=== PATIENT | female | born 1990 | race Caucasian/White ===

== ENCOUNTER 2018-03-20 00:13 | Emergency (ER) | payer BC ==
[~2018-03-20] VITALS: Ht 175.3 cm; Wt 63.5 kg
--- NOTE | 2018-03-20 00:25 | NUR ---
TO ER BED 9 FROM HOME COMPLAINING OF LT FLANK PAIN FOR THE PAST "5 HOURS." AA/O X4. PAIN NON RADIATING, SHARP PAIN, 8/10 PAIN. +NAUSEA/ - VOMITTING. SKIN PINK, WARM, DRY. AMBULATED TO BED WITH STABLE GAIT. PEDAL PULSES PRESENT. MOVES ALL EXTREMITIES WELL. NAD. VSS. STABLE CONDITION. WILL CONTINUE TO MONITOR.
[2018-03-20] MEDS ORDERED: CEFTRIAXONE 1 G VIAL ONE (00:58)
[2018-03-20] MEDS ORDERED: ONDANSETRON HCL/PF 4 MG/2 ML VIAL ONE ×2 (00:58→02:21)
[2018-03-20] MEDS ORDERED: HYDROMORPHONE 1 MG/1 ML DISP.SYRIN ONE (00:59)
[2018-03-20] MEDS ORDERED: IV NS 0.9% 1,000 ML BAG IV ONE (01:00)
[2018-03-20] MEDS ORDERED: HYDROMORPHONE INJ 2 MG/ML DISP.SYRIN IV ONE (01:00)
[2018-03-20] MEDS ORDERED: ONDANSETRON HCL/PF 4 MG/2 ML VIAL IVP ONE (01:00)
[2018-03-20] MEDS ORDERED: CEFTRIAXONE 1GM BAG (ER ONLY) 50 ML IV ONE (01:00)
[2018-03-20 01:15] LABS: BASOPHILS # (AUTO) 0.1 /CMM (0.0-0.2); BASOPHILS % (AUTO) 0.6 % (0.0-2.0); EOSINOPHILS % (AUTO) 2.5 % (0.0-6.0); HEMATOCRIT 45 % (33-45); LYMPHOCYTES # (AUTO) 1.6 /CMM (0.8-4.8); LYMPHOCYTES % (AUTO) 18.4 % (20.0-44.0); MEAN CORPUSCULAR HGB CONC 33 g/dl (31.0-36.0); MEAN CORPUSCULAR VOLUME 96 fL (82-100); MONOCYTES # (AUTO) 0.6 /CMM (0.1-1.30); MONOCYTES % (AUTO) 7.4 % (2.0-12.0); NEUTROPHILS # (AUTO) 6.3 /CMM (1.8-8.9); NEUTROPHILS % (AUTO) 71.1 % (43.0-81.0); PLATELET COUNT (AUTO) 253 /CMM (150-450); RDW COEFFICIENT OF VARIATION 11.6 (11.5-15.0); RED BLOOD CELL COUNT(AUTO) 4.68 MIL/uL (4.0-5.2); WHITE BLOOD COUNT (AUTO) 8.8 K/uL (4.3-11.0)
--- NOTE | 2018-03-20 01:17 | NUR ---
Patient is resting comfortably in bed with eyes closed. Easily aroused. VSS. NAD. FAMILY AT BEDSIDE
[2018-03-20 01:29] LABS: APPEARANCE,URINE CLEAR (CLEAR); BILIRUBIN,URINE NEGATIVE (NEGATIVE); BLOOD, URINE 3+ Ery/uL (NEGATIVE); COLOR,URINE OTHER (YELLOW); KETONES,URINE NEGATIVE (NEGATIVE); LEUKOCYTE ESTERASE ,URINE 1+ (NEGATIVE); NITRITE, URINE NEGATIVE (NEGATIVE); PH,URINE 6.5 (5.0-8.0); PROTEIN,URINE TRACE mg/dl (NEGATIVE); UGLUCOSE NEGATIVE (NEGATIVE); UROBILINOGEN,URINE 0.2 EU/dL (0.2)
[2018-03-20 01:42] LABS: CALCIUM, SERUM 9.7 mg/dL (8.5-10.1); CREATININE 0.9 mg/dL (0.6-1.3); POTASSIUM 3.8 mmol/L (3.5-5.1)
[2018-03-20 01:48] LABS: ALBUMIN 4.3 g/dL (3.4-5.0); BILIRUBIN,DIRECT 0.1 mg/dL (0.0-0.2); BILIRUBIN,TOTAL 0.4 mg/dL (0.2-1.0); TOTAL PROTEIN, SERUM 7.9 g/dL (6.4-8.2)
[2018-03-20 01:57] LABS: BACTERIA,URINE Moderate /HPF (None Seen); RBC,URINE 0-2 /HPF (0-2); SQUAMOUS EPITHELIAL CELL,UR Few /HPF (None Seen)
[2018-03-20] MEDS ORDERED: ONDANSETRON HCL/PF - ER 4 MG/2 ML VIAL IV ONE (02:30)
--- NOTE | 2018-03-20 02:30 | NUR ---
Patient discharged to home in stable condition. Written and verbal after care instructions given. Patient verbalizes understanding of instruction. IV removed. Catheter intact and site benign. Pressure and 4x4 applied to site. No bleeding noted. AMBULATED WITH STEADY GAIT. INSTRUCTED NOT TO DRIVE OR OPERATE HEAVY MACHINERY.
[2018-03-20 02:32] VITALS: BP 118/80
== END 2018-03-20 02:32 | disposition home or self-care (01) ==
LOC: ER 00:16
DX: N12 Tubulo-interstitial nephritis, not specified as acute or chronic (principal); Z87.440 Personal history of urinary (tract) infections
CPT/HCPCS: 36415; 80048; 80076; 81001; 83690; 84703; 85025; 87077; 87086; 87186; 96365; 96375; 96376; 99284; A4216; A4606; J0696; J1170; J2405 ×2; J7030; Z7610; 81000-TC

== ENCOUNTER 2018-05-19 11:16 | Emergency (ER) | payer BC ==
[~2018-05-19] VITALS: Ht 175.3 cm; Wt 53.5 kg
--- NOTE | 2018-05-19 11:28 | NUR ---
PT BIB SELF c/o left flank pain, n/v this am, PT IS AOX4, NOT IN RESPIRATORY DISTRESS, VS STABLE, KEPT RESTED AND CONFORTABLE.
--- NOTE | 2018-05-19 11:35 | NUR ---
DR. BLACK AT BEDSIDE FOR EVAL
--- NOTE | 2018-05-19 11:40 | NUR ---
URINE SAMPLE OBTAINED AND SENT TO THE LAB.
[2018-05-19] MEDS ORDERED: HYDROMORPHONE INJ 2 MG/ML DISP.SYRIN ONE (11:47)
[2018-05-19] MEDS ORDERED: ONDANSETRON HCL/PF 4 MG/2 ML VIAL ONE ×2 (11:47→13:08)
[2018-05-19 11:54] LABS: BASOPHILS % (AUTO) 0.2 % (0.0-2.0); EOSINOPHILS % (AUTO) 1.5 % (0.0-6.0); HEMATOCRIT 45 % (33-45); HEMOGLOBIN 14.7 g/dL (11.5-14.8); LYMPHOCYTES # (AUTO) 0.6 /CMM (0.8-4.8); LYMPHOCYTES % (AUTO) 8.3 % (20.0-44.0); MEAN CORPUSCULAR HGB CONC 33 g/dl (31.0-36.0); MEAN CORPUSCULAR VOLUME 98 fL (82-100); MONOCYTES # (AUTO) 0.6 /CMM (0.1-1.30); MONOCYTES % (AUTO) 7.8 % (2.0-12.0); NEUTROPHILS # (AUTO) 6.3 /CMM (1.8-8.9); NEUTROPHILS % (AUTO) 82.2 % (43.0-81.0); PLATELET COUNT (AUTO) 206 /CMM (150-450); RED BLOOD CELL COUNT(AUTO) 4.56 MIL/uL (4.0-5.2); WHITE BLOOD COUNT (AUTO) 7.6 K/uL (4.3-11.0)
[2018-05-19 11:56] LABS: APPEARANCE,URINE Clear (CLEAR); BILIRUBIN,URINE Negative (NEGATIVE); BLOOD, URINE Trace-intact Ery/uL (NEGATIVE); COLOR,URINE Yellow (YELLOW); KETONES,URINE Negative (NEGATIVE); LEUKOCYTE ESTERASE ,URINE Trace (NEGATIVE); NITRITE, URINE Negative (NEGATIVE); PH,URINE 8.5 (5.0-8.0); PROTEIN,URINE Negative (NEGATIVE); UGLUCOSE Negative (NEGATIVE); UROBILINOGEN,URINE 0.2 EU/dL (0.2)
[2018-05-19] MEDS ORDERED: ONDANSETRON HCL/PF 4 MG/2 ML VIAL IVP ONE (12:00)
[2018-05-19] MEDS ORDERED: IV NS 0.9% 1,000 ML BAG IV ONE (12:00)
[2018-05-19] MEDS ORDERED: HYDROMORPHONE INJ 2 MG/ML DISP.SYRIN IV ONE (12:00)
[2018-05-19 12:03] LABS: CALCIUM, SERUM 9.8 mg/dL (8.5-10.1); POTASSIUM 4.4 mmol/L (3.5-5.1)
[2018-05-19 12:09] LABS: ALBUMIN 4.2 g/dL (3.4-5.0); BILIRUBIN,DIRECT 0.1 mg/dL (0.0-0.2); BILIRUBIN,TOTAL 0.4 mg/dL (0.2-1.0); TOTAL PROTEIN, SERUM 7.8 g/dL (6.4-8.2)
[2018-05-19 12:14] LABS: BACTERIA,URINE Moderate /HPF (None Seen); SQUAMOUS EPITHELIAL CELL,UR Few /HPF (None Seen)
[2018-05-19] MEDS ORDERED: CEFTRIAXONE 1GM BAG (ER ONLY) 1 GM/50 ML PIGGYBACK IV ONE (12:30)
[2018-05-19] MEDS ORDERED: CEFTRIAXONE 1GM BAG (ER ONLY) 100 ML IV ONE (12:32)
[2018-05-19] MEDS ORDERED: ONDANSETRON HCL/PF 4 MG/2 ML VIAL IV ONE (13:30)
[2018-05-19 14:31] VITALS: BP 120/72
--- NOTE | 2018-05-19 14:32 | NUR ---
Patient discharged to home in stable condition. Written and verbal after care instructions given. Patient verbalizes understanding of instruction. IV removed. Catheter intact and site benign. Pressure and 4x4 applied to site. No bleeding noted.
== END 2018-05-19 14:32 | disposition home or self-care (01) ==
LOC: ER 11:20
DX: N12 Tubulo-interstitial nephritis, not specified as acute or chronic (principal); R11.2 Nausea with vomiting, unspecified; N39.0 Urinary tract infection, site not specified; F31.9 Bipolar disorder, unspecified; E86.0 Dehydration; A69.20 Lyme disease, unspecified
CPT/HCPCS: 36415; 80048-TC; 80076-TC; 81000-TC; 83605-TC; 84703-TC; 85025-TC; 87040-TC; 87086-TC; 87186-TC; A4606; J0696; J1170; J2405; J7030; Z7610

== ENCOUNTER 2018-08-24 14:35 | Inpatient (IN) | payer BC, MEDICAID, OTHER ==
[~2018-08-24] VITALS: Ht 175.3 cm; Wt 60.3 kg
--- NOTE | 2018-08-24 14:40 | NUR ---
AAOX3, CAME TO ER WITH MULTIPLE COMPLAINTS: LYME DISEASE FLARE UP, JOINT PAIN, HEADACHE X 2 DAYS. RR IS EVEN AND UNLABORED WITH NAD NOTED. SKIN IS WARM AND DRY. AWAITING MD FOR EVAL.
--- NOTE | 2018-08-24 14:50 | NUR ---
DR JOYCE AT BS FOR EVAL.
[2018-08-24] MEDS ORDERED: KETOROLAC TROMETHAMINE INJ 30 MG/ML VIAL IV ONE (15:00)
[2018-08-24] MEDS ORDERED: ONDANSETRON HCL/PF 4 MG/2 ML VIAL ONE (15:00)
[2018-08-24] MEDS ORDERED: KETOROLAC TROMETHAMINE INJ 30 MG/ML VIAL ONE (15:00)
[2018-08-24] MEDS ORDERED: IV NS 0.9% 1,000 ML BAG IV ONE (15:00)
[2018-08-24] MEDS ORDERED: ONDANSETRON HCL/PF 4 MG/2 ML VIAL IVP ONE (15:00)
[2018-08-24] MEDS ORDERED: HYDROMORPHONE INJ 2 MG/ML DISP.SYRIN IV ONE (15:00)
[2018-08-24] MEDS ORDERED: HYDROMORPHONE 1 MG/1 ML DISP.SYRIN ONE (15:01)
[2018-08-24 15:06] LABS: BASOPHILS % (AUTO) 0.2 % (0.0-2.0); HEMATOCRIT 43 % (33-45); LYMPHOCYTES # (AUTO) 1.4 /CMM (0.8-4.8); LYMPHOCYTES % (AUTO) 16.7 % (20.0-44.0); MEAN CORPUSCULAR HGB CONC 33 g/dl (31.0-36.0); MEAN CORPUSCULAR VOLUME 99 fL (82-100); MONOCYTES # (AUTO) 0.4 /CMM (0.1-1.30); MONOCYTES % (AUTO) 4.6 % (2.0-12.0); NEUTROPHILS # (AUTO) 6.2 /CMM (1.8-8.9); NEUTROPHILS % (AUTO) 76.5 % (43.0-81.0); PLATELET COUNT (AUTO) 203 /CMM (150-450); RED BLOOD CELL COUNT(AUTO) 4.39 MIL/uL (4.0-5.2); WHITE BLOOD COUNT (AUTO) 8.1 K/uL (4.3-11.0)
[2018-08-24 15:15] LABS: CALCIUM, SERUM 9.5 mg/dL (8.5-10.1); CREATININE 1.1 mg/dL (0.6-1.3); POTASSIUM 3.6 mmol/L (3.5-5.1)
[2018-08-24 15:21] LABS: ALBUMIN 4.1 g/dL (3.4-5.0); BILIRUBIN,DIRECT 0.1 mg/dL (0.0-0.2); BILIRUBIN,TOTAL 0.5 mg/dL (0.2-1.0); TOTAL PROTEIN, SERUM 6.7 g/dL (6.4-8.2)
--- NOTE | 2018-08-24 15:30 | NUR ---
Patient is resting comfortably in bed with eyes closed. Easily aroused. VSS
[2018-08-24 15:35] LABS: APPEARANCE,URINE Cloudy (CLEAR); BILIRUBIN,URINE Negative (NEGATIVE); BLOOD, URINE Small Ery/uL (NEGATIVE); COLOR,URINE Yellow (YELLOW); KETONES,URINE Negative (NEGATIVE); LEUKOCYTE ESTERASE ,URINE Large (NEGATIVE); NITRITE, URINE Positive (NEGATIVE); PROTEIN,URINE 100 mg/dl (NEGATIVE); UGLUCOSE Negative (NEGATIVE); UROBILINOGEN,URINE 0.2 EU/dL (0.2)
[2018-08-24 15:51] LABS: BACTERIA,URINE Many /HPF (None Seen); SQUAMOUS EPITHELIAL CELL,UR Many /HPF (None Seen); WBC,URINE 21-50 /HPF (0-3)
[2018-08-24] MEDS ORDERED: CEFTRIAXONE 1GM BAG (ER ONLY) 50 ML IV ONE (16:04)
[2018-08-24] MEDS ORDERED: CEFTRIAXONE 1GM BAG (ER ONLY) 0 ML IV ONE (16:07)
--- NOTE | 2018-08-24 16:25 | NUR ---
Patient is resting comfortably in bed with eyes closed. Easily aroused. VSS
[2018-08-24] MEDS ORDERED: IV NS 0.9% 1,000 ML IV ONE (16:30)
[2018-08-24] MEDS ORDERED: CEFTRIAXONE 1GM BAG (ER ONLY) 1 GM/50 ML PIGGYBACK IV ONE (16:30)
[2018-08-24] MEDS ORDERED: LORAZEPAM INJ 2 MG/ML VIAL IV ONE (16:30)
[2018-08-24] MEDS ORDERED: LORAZEPAM INJ 2 MG/ML VIAL ONE (16:36)
--- NOTE | 2018-08-24 17:20 | NUR ---
DR JOYCE AT BS TALKING TO THE PATIENT AT BS.
[2018-08-24] MEDS ORDERED: PROP20TA19 PO (17:52)
[2018-08-24] MEDS ORDERED: LITH300T PO (17:52)
[2018-08-24] MEDS ORDERED: LAMO300T2 PO (17:52)
[2018-08-24] MEDS ORDERED: CLOB2.5O PO (17:52)
[2018-08-24] MEDS ORDERED: PROP80CA2 PO (17:52)
--- NOTE | 2018-08-24 18:59 | NUR ---
REPORT GIVEN TO STACY RAMIREZ FOR [facility] MS [id number].
[2018-08-24 19:30] VITALS: BP 110/71
[2018-08-24] MEDS ORDERED: HYDROMORPHONE MDV 1 MG in IV D5W 50 ML IV PRN (19:30)
[2018-08-24] MEDS ORDERED: KETOROLAC TROMETHAMINE INJ 30 MG/ML VIAL IM PRN (19:30)
--- NOTE | 2018-08-24 20:00 | NUR ---
RN NOTES RECEIVED NEW ADMISSION FROM ED, ALERT AND ORIENTED X4, IN DISTRESS, ANXIOUS, COMPLAINING OF HEADACHE, FLANK PAIN, PER PATIENT RELATED TO LYME DISEASE FLARE UP, DX OF PYELONEPHRITIS, LUNG SOUNDS ARE CLEAR, ABDOMEN SOFT AND NON TENDER, SKIN INTACT, DR. LAMBERT PUTTING ADMISSION ORDERS, AWAITING PAIN MEDICATION ORDER.
[2018-08-24] MEDS ORDERED: LamoTRIgine 25 MG TABLET PO SCH (21:00)
[2018-08-24 21:16] VITALS: BP 110/71
[2018-08-24] MEDS ORDERED: ZOLPIDEM TARTRATE 5 MG TABLET PO PRN (21:30)
[2018-08-24] MEDS ORDERED: MAGNESIUM HYDROXIDE 30 ML UDC PO PRN (21:30)
[2018-08-24] MEDS ORDERED: LamoTRIgine 100 MG TABLET PO ONE (21:30)
[2018-08-24] MEDS ORDERED: ACETAMINOPHEN 325 MG TABLET PO PRN (21:30)
[2018-08-24] MEDS ORDERED: Z GUARD REMEDY 2 OZ OINT TP PRN (21:30)
[2018-08-24] MEDS ORDERED: MAG HYDROX/AL HYDROX/SIMETH 30 ML UDC PO PRN (21:30)
[2018-08-24] MEDS: ONDANSETRON HCL/PF 4 MG/2 ML VIAL IVP PRN (21:59)
[2018-08-24] MEDS: IV NS 0.9% 1,000 ML IV PRN (22:30)
[2018-08-24] MEDS ORDERED: HYDROMORPHONE INJ 0.5 MG/0.5 ML SYRINGE IV PRN (23:00)
[2018-08-24] MEDS: HYDROMORPHONE 1 MG/1 ML DISP.SYRIN IV PRN (23:24)
[2018-08-25] MEDS: HYDROCODONE/APAP 5/325MG 1 EACH TABLET PO PRN ×2 (03:55→08:07)
[2018-08-25] MEDS: HYDROMORPHONE 1 MG/1 ML DISP.SYRIN IV PRN ×3 (05:40→17:58)
--- NOTE | 2018-08-25 06:38 | NUR ---
RN NOTES PM SHIFT PATIENT IS ALERT AND AWAKE, NO RESPIRATORY DISTRESS, COMPLAINING OF HEADACHE, FLANK PAIN, ON TORADOL, NORCO AND DILAUDID 1 MG IVP WITH GOOD RELIEF, PATIENT ON LAMICTAL FOR SEIZURE, ONFI HELD PER DR. LAMBERT, CONTINUE PAIN MANAGEMENT, IVF FOR HYDRATION, SUPPORTIVE CARE
[2018-08-25 06:45] LABS: BASOPHILS % (AUTO) 0.4 % (0.0-2.0); EOSINOPHILS % (AUTO) 3.2 % (0.0-6.0); HEMATOCRIT 36 % (33-45); LYMPHOCYTES # (AUTO) 1.4 /CMM (0.8-4.8); LYMPHOCYTES % (AUTO) 22.4 % (20.0-44.0); MEAN CORPUSCULAR HGB CONC 34 g/dl (31.0-36.0); MEAN CORPUSCULAR VOLUME 97 fL (82-100); MONOCYTES # (AUTO) 0.4 /CMM (0.1-1.30); MONOCYTES % (AUTO) 6.7 % (2.0-12.0); NEUTROPHILS # (AUTO) 4.3 /CMM (1.8-8.9); NEUTROPHILS % (AUTO) 67.3 % (43.0-81.0); PLATELET COUNT (AUTO) 157 /CMM (150-450); RED BLOOD CELL COUNT(AUTO) 3.68 MIL/uL (4.0-5.2); WHITE BLOOD COUNT (AUTO) 6.4 K/uL (4.3-11.0)
[2018-08-25 06:52] LABS: ALBUMIN 3.4 g/dL (3.4-5.0); BILIRUBIN,TOTAL 0.5 mg/dL (0.2-1.0); CALCIUM, SERUM 8.5 mg/dL (8.5-10.1); CREATININE 1.1 mg/dL (0.6-1.3); MAGNESIUM 1.6 mg/dL (1.8-2.4); PHOSPHORUS 3.5 mg/dL (2.5-4.9); POTASSIUM 3.6 mmol/L (3.5-5.1); TOTAL PROTEIN, SERUM 5.8 g/dL (6.4-8.2)
--- NOTE | 2018-08-25 07:30 | NUR ---
RN OPENING NOTES RECEIVED PATIENT IN BED RESTING. A/OX4, ABLE TO MAKE NEEDS KNOWN. NOT IN ANY FORM OF DISTRESS, NO SOB. IV ACCESS INTACT AND PATENT, IVF INFUSING AT 75MLS/HR. KEPT PATIENT SAFE AND COMFORTABLE. BED IN LOW/LOCKED POSITION, SIDERAILS UPX2, CALL LIGHT IN REACH. WILL CONTINUE TO MONITOR ACCORDINGLY.
--- NOTE | 2018-08-25 07:51 | NUR ---
RN NOTES KETOROLAC 30MG PULLED OUT AND WASTED. PATIENT REFUSED DUE TO IM ROUTE. PER PATIENT, SHE WANTS NORCO OR DILAUDID. WASTE WITNESS BY STACY SCHMIDT
[2018-08-25 08:00] VITALS: BP 97/60
[2018-08-25] MEDS: LamoTRIgine 100 MG TABLET PO SCH ×2 (08:07→20:33)
[2018-08-25] MEDS: Magnesium 1GM/D5W 100ML PREMIX 100 ML IV SCH ×2 (09:40→11:02)
[2018-08-25] MEDS: ONDANSETRON HCL/PF 4 MG/2 ML VIAL IVP PRN (10:34)
[2018-08-25] MEDS: LORAZEPAM 1 MG TABLET PO PRN (11:31)
[2018-08-25 16:00] VITALS: BP 97/70
[2018-08-25] MEDS: CEFTRIAXONE 1 G in IV D5W 50 ML IV SCH (17:11)
[2018-08-25] MEDS: IV NS 0.9% 1,000 ML IV PRN (17:20)
[2018-08-25] MEDS: METOCLOPRAMIDE HCL 10 MG/2 ML VIAL IV PRN (17:40)
--- NOTE | 2018-08-25 19:30 | NUR ---
RN CLOSING NOTES PATIENT IN STABLE CONDITION. ALL NEEDS ATTENDED AND PROVIDED. ALL DUE MEDICATIONS ADMINISTERED ORDERED. ASSISTED WITH ADLS. KEPT PATIENT SAFE AND COMFORTABLE. BED IN LOW/LOCKED POSITION, SIDERAILS UPX2, CALL LIGHT IN REACH. ENDORSED TO NIGHT RN FOR LITO.
--- NOTE | 2018-08-25 19:35 | NUR ---
MS/RN OPENING NOTES PT AWAKE, FRIEND AT BEDSIDE. A/OX3. ON ROOM AIR, BREATHING EVEN AND UNLABORED. DENIES SOB AND PAIN AT THIS TIME. IV TO RAC PATENT AND INTACT RUNNING IVF ORDERED. BILATERAL UPPER SIDE RAILS IN PLACE. IN NO ACUTE DISTRESS. BED IN LOW/LOCKED POSITION WITH CALL LIGHT IN REACH. WILL CONTINUE TO MONITOR
[2018-08-25 20:00] VITALS: BP 124/86
[2018-08-25] MEDS: ONDANSETRON HCL/PF 4 MG/2 ML VIAL IV PRN (21:03)
[2018-08-26] MEDS: HYDROMORPHONE 1 MG/1 ML DISP.SYRIN IV PRN ×3 (05:26→17:53)
--- NOTE | 2018-08-26 07:35 | NUR ---
MS/RN CLOSING NOTES PT ASLEEP, A/OX3. ON ROOM AIR, BREATHING EVEN AND UNLABORED. DENIES SOB AND PAIN AT THIS TIME. IV TO RAC PATENT AND INTACT RUNNING IVF ORDERED. NO SIGNIFICANT CHANGES OVERNIGHT. ALL NEEDS MET. BED IN LOW/LOCKED POSITION WITH CALL LIGHT IN REACH. BILATERAL UPPER SIDE RAILS IN PLACE. ALL NEEDS MET. ENDORSED TO DAY SHIFT RN LITO AND TO F/U WITH MD REGARDING ZOFRAN VS REGLAN ORDER AND PT'S REQUEST TO CONTINUE ONFI HOME MEDICATION.
--- NOTE | 2018-08-26 07:45 | NUR ---
RN NOTES PATIENT A/OX4, BREATHING EVEN AND UNLABORED, NAD, INDEPENDENT WITH ADLS. NEEDS ATTENDED, CALL LIGHT WITHIN REACH, WILL CONTINUE TO MONITOR.
[2018-08-26] MEDS: LamoTRIgine 100 MG TABLET PO SCH ×2 (08:46→21:05)
[2018-08-26] MEDS: ONDANSETRON HCL/PF 4 MG/2 ML VIAL IV PRN ×3 (08:49→22:14)
[2018-08-26] MEDS: IV NS 0.9% 1,000 ML IV PRN (08:52)
[2018-08-26 09:13] VITALS: BP 109/70
[2018-08-26] MEDS: LORAZEPAM 1 MG TABLET PO PRN ×3 (10:06→22:21)
[2018-08-26] MEDS: METOCLOPRAMIDE HCL 10 MG/2 ML VIAL IV PRN (10:39)
[2018-08-26] MEDS ORDERED: methylPREDNISolone SOD SUCC 1,000 MG in IV NS 0.9% 250 ML IV ONE (12:00)
[2018-08-26] MEDS ORDERED: methylPREDNISolone (4MG) 4 MG TABLET (DAY #1 ) PO ONE (12:00)
[2018-08-26] MEDS ORDERED: methylPREDNISolone (4MG) 4 MG TABLET (DAY #1, PC LUNCH) PO ONE (12:30)
[2018-08-26 16:00] VITALS: BP 116/69
[2018-08-26] MEDS: CEFTRIAXONE 1 G in IV D5W 50 ML IV SCH (16:01)
[2018-08-26] MEDS ORDERED: methylPREDNISolone (4MG) 4 MG TABLET (DAY #1 PC DINNER) PO ONE (17:30)
--- NOTE | 2018-08-26 18:16 | NUR ---
RN NOTES PATIENT IN NAD, C/O INTERMITTENT DOUBLE VISION AND NYSTAGMUS. CHAPINCITO TILLMAN AWARE. PATIENT APPEARS TO BE COMFORTABLE AT THIS TIME, NO SEIZURE OBSERVED OR REPORTED. SEIZURE PRECAUTIONS IN PLACED, ALL NEEDS ATTENDED AND MET, CALL LIGHT WITHIN REACH, WILL ENDORSE TO FRAME W[employer]ILITY TRAILERS FOR LITO.
--- NOTE | 2018-08-26 19:39 | NUR ---
MS RN NOTES RECEIVED PATIENT AWAKE IN BED AND WATCHING TV WITH NO DISTRESS NOTED. CALL LIGHT WITHIN REACH. NO C/O PAIN OR DISCOMFORT. PERIPHERAL LINE INTACT AND PATENT. BED IN LOW LOCK SETTING. ROOM FREE OF CLUTTER AND ALL BELONGINGS KEPT NEAR BEDSIDE. WILL CONTINUE TO MONITOR.
[2018-08-26 20:01] VITALS: BP 111/77
[2018-08-26] MEDS ORDERED: methylPREDNISolone (4MG) 4 MG TABLET (DAY1,HS) PO ONE (22:00)
[2018-08-27] MEDS: HYDROMORPHONE 1 MG/1 ML DISP.SYRIN IV PRN (00:02)
[2018-08-27] MEDS: IV NS 0.9% 1,000 ML IV PRN (02:10)
--- NOTE | 2018-08-27 06:21 | NUR ---
MS RN NOTES PATIENT ASLEEP IN BED WITH NO DISTRESS NOTED. CALL LIGHT WITHIN REACH. PERIPHERAL LINE INTACT AND PATENT. NO FURTHER C/O PAIN OR DISCOMFORT. ALL DUE MEDS GIVEN ORDERED AND TOLERATED WELL. BED IN LOW LOCK SETTING. ROOM FREE OF CLUTTER AND ALL BELONGINGS KEPT NEAR BEDSIDE. WILL ENDORSE TO ONCOMING SHIFT.
[2018-08-27 06:59] LABS: HEMATOCRIT 39 % (33-45); HEMOGLOBIN 13.2 g/dL (11.5-14.8); LYMPHOCYTES # (AUTO) 0.4 /CMM (0.8-4.8); LYMPHOCYTES % (AUTO) 7.9 % (20.0-44.0); MEAN CORPUSCULAR HGB CONC 34 g/dl (31.0-36.0); MEAN CORPUSCULAR VOLUME 96 fL (82-100); MONOCYTES # (AUTO) 0.1 /CMM (0.1-1.30); MONOCYTES % (AUTO) 1.6 % (2.0-12.0); NEUTROPHILS # (AUTO) 4.5 /CMM (1.8-8.9); NEUTROPHILS % (AUTO) 90.5 % (43.0-81.0); PLATELET COUNT (AUTO) 189 /CMM (150-450); RED BLOOD CELL COUNT(AUTO) 4.08 MIL/uL (4.0-5.2)
[2018-08-27] MEDS: LORAZEPAM 1 MG TABLET PO PRN (07:04)
[2018-08-27 07:18] LABS: ALBUMIN 3.9 g/dL (3.4-5.0); BILIRUBIN,DIRECT 0.1 mg/dL (0.0-0.2); BILIRUBIN,TOTAL 0.3 mg/dL (0.2-1.0); CALCIUM, SERUM 9.6 mg/dL (8.5-10.1); CREATININE 0.9 mg/dL (0.6-1.3); POTASSIUM 4.3 mmol/L (3.5-5.1); TOTAL PROTEIN, SERUM 7.1 g/dL (6.4-8.2)
[2018-08-27] MEDS ORDERED: methylPREDNISolone (4MG) 4 MG TABLET (DAY#2 ACB) PO ONE (07:30)
[2018-08-27] MEDS ORDERED: PANTOPRAZOLE 40 MG TABLET.DR PO SCH (07:30)
[2018-08-27 07:53] VITALS: BP 131/93
[2018-08-27 08:00] VITALS: BP 131/93
--- NOTE | 2018-08-27 08:00 | NUR ---
RN NOTES Received Patient in bed, A/O x 4. Patient states that she wants to go home. Patient stable, no SOB, breathing unlabored, VS stable, BP-131/93, HR-87, RR-18, Temp-98.2F on RA O2 Sat-97%. Explained to Patient risks and consequences of AMA. Patient agreed AMA. AMA paper signed. No paper works given.
[2018-08-27] MEDS ORDERED: methylPREDNISolone DOSPAK(4MG) 1 PACK TAB.DS.PK PO ONE (09:00)
[2018-08-27] MEDS ORDERED: methylPREDNISolone (4MG) 4 MG TABLET (DAY#2,PC LUNCH) PO ONE (12:30)
[2018-08-27] MEDS ORDERED: methylPREDNISolone (4MG) 4 MG TABLET (DAY#2, PC DINNER) PO ONE (17:30)
[2018-08-27] MEDS ORDERED: methylPREDNISolone (4MG) 4 MG TABLET (DAY#2, HS) PO ONE (21:00)
[2018-08-28] MEDS ORDERED: methylPREDNISolone (4MG) 4 MG TABLET (DAY#3,ACB) PO ONE (07:30)
[2018-08-28] MEDS ORDERED: methylPREDNISolone (4MG) 4 MG TABLET (DAY#3,PC LUNCH) PO ONE (12:30)
[2018-08-28] MEDS ORDERED: methylPREDNISolone (4MG) 4 MG TABLET (DAY#3,PC DINNER) PO ONE (17:30)
[2018-08-28] MEDS ORDERED: methylPREDNISolone (4MG) 4 MG TABLET (DAY#3, HS) PO ONE (22:00)
[2018-08-29] MEDS ORDERED: methylPREDNISolone (4MG) 4 MG TABLET (DAY #4, ACB) PO ONE (07:30)
[2018-08-29] MEDS ORDERED: methylPREDNISolone (4MG) 4 MG TABLET (DAY #4, PC LUNCH) PO ONE (12:30)
[2018-08-29] MEDS ORDERED: methylPREDNISolone (4MG) 4 MG TABLET (DAY#4 HS) PO ONE (22:00)
[2018-08-30] MEDS ORDERED: methylPREDNISolone (4MG) 4 MG TABLET (DAY#5, ACB) PO ONE (07:30)
[2018-08-30] MEDS ORDERED: methylPREDNISolone (4MG) 4 MG TABLET (DAY#5,HS) PO ONE (22:00)
[2018-08-31] MEDS ORDERED: methylPREDNISolone (4MG) 4 MG TABLET (DAY#6,ACB) PO ONE (07:30)
== END 2018-08-27 08:53 | disposition left against medical advice (07) | DRG 463 ==
LOC: ER 14:38 → MED 19:04
PROVIDERS: ADMIT Internal Medicine; ATTEND Nurse Practitioner Acute Care
DX: N12 Tubulo-interstitial nephritis, not specified as acute or chronic (principal); B95.7 Other staphylococcus as the cause of diseases classified elsewhere; G43.909 Migraine, unspecified, not intractable, without status migrainosus; F31.9 Bipolar disorder, unspecified; Z79.899 Other long term (current) drug therapy; G40.509 Epileptic seizures related to external causes, not intractable, without status epilepticus; G44.209 Tension-type headache, unspecified, not intractable; Z86.19 Personal history of other infectious and parasitic diseases
CPT/HCPCS: 36415; 70450-TC; 80048-TC; 80053-TC; 80061-TC; 80076-TC; 80175; 81000-TC; 83690-TC; 83735-TC; 84100-TC; 84703-TC; 85025-TC; 87081-TC; 87086-TC; 87186-TC; G0378; J0696; J1170; J1885; J2060; J2405; J2765; J2930; J3475; J7030; J7050; J7060; J7509

== ENCOUNTER 2018-08-28 16:07 | Emergency (ER) | payer OTHER ==
[~2018-08-28] VITALS: Ht 175.3 cm; Wt 59.0 kg
[2018-08-28 16:07] VITALS: BP 141/75
[~2018-08-28 16:07] MED LIST: CLOB2.5O PO; LAMO300T2 PO; LITH300T PO; PROP20TA19 PO; PROP80CA2 PO
== END 2018-08-28 18:00 | disposition home or self-care (01) ==
LOC: ER 16:10
DX: N12 Tubulo-interstitial nephritis, not specified as acute or chronic (principal); A69.20 Lyme disease, unspecified; Z87.440 Personal history of urinary (tract) infections
CPT/HCPCS: 99283; A4606

== ENCOUNTER 2018-10-04 19:33 | Emergency (ER) | payer MEDICAID, OTHER ==
[~2018-10-04] VITALS: Ht 175.3 cm; Wt 61.2 kg
--- NOTE | 2018-10-04 20:06 | NUR ---
BIBS. C/O "I HAVENT BEEN ABLE TO BEE SINCE YESTERDAY, I FEEL LIKE I HAVE TO PEE BUT NOTHING COMES OUT, I ALSO FEEL BLOATED." -SOB -N/V -DIZZY. AOX4. AMBULATORY. -PAIN UPON PALPATION.
--- NOTE | 2018-10-04 20:31 | NUR ---
>500ML URINE NOTED ON BLADDER SCAN. AWARE
--- NOTE | 2018-10-04 20:43 | NUR ---
OCHOA CATHETER INSERTED. URINE COLLECTED AND SENT TO LAB
[2018-10-04 20:46] LABS: APPEARANCE,URINE Clear (CLEAR); BILIRUBIN,URINE Negative (NEGATIVE); BLOOD, URINE Negative Ery/uL (NEGATIVE); COLOR,URINE Yellow (YELLOW); KETONES,URINE Negative (NEGATIVE); LEUKOCYTE ESTERASE ,URINE Negative (NEGATIVE); NITRITE, URINE Negative (NEGATIVE); PROTEIN,URINE Negative (NEGATIVE); UGLUCOSE Negative (NEGATIVE); UROBILINOGEN,URINE 0.2 EU/dL (0.2)
--- NOTE | 2018-10-04 21:52 | NUR ---
PER VERBAL ORDER FROM MYRANDA KOHLER D/C OCHOA CATHETER. TOTAL OUTPUT 700ML.
[2018-10-04] MEDS ORDERED: TAMSULOSIN 0.4 MG CAP.SR.24H ONE (21:53)
[2018-10-04] MEDS ORDERED: TAMSULOSIN 0.4 MG CAP.SR.24H PO ONE (22:00)
[2018-10-04 23:04] VITALS: BP 120/79
== END 2018-10-04 23:05 | disposition home or self-care (01) ==
LOC: ER 19:34
DX: R33.9 Retention of urine, unspecified (principal); G43.909 Migraine, unspecified, not intractable, without status migrainosus; A69.20 Lyme disease, unspecified; F31.9 Bipolar disorder, unspecified; Z98.890 Other specified postprocedural states
CPT/HCPCS: 81000-TC; 84703-TC

== ENCOUNTER 2018-11-29 12:34 | Emergency (ER) | payer MEDICAID ==
[~2018-11-29] VITALS: Ht 175.3 cm; Wt 61.2 kg
[2018-11-29] MEDS ORDERED: NA PHOS,M-B/NA PHOS,DI-BA 1 EA ENEMA RC ONE ×2 (13:30→15:41)
[2018-11-29 13:41] LABS: BASOPHILS % (AUTO) 0.6 % (0.0-2.0); EOSINOPHILS % (AUTO) 2.6 % (0.0-6.0); HEMATOCRIT 42 % (33-45); HEMOGLOBIN 13.8 g/dL (11.5-14.8); LYMPHOCYTES # (AUTO) 1.2 /CMM (0.8-4.8); LYMPHOCYTES % (AUTO) 25.2 % (20.0-44.0); MEAN CORPUSCULAR HGB CONC 33 g/dl (31.0-36.0); MEAN CORPUSCULAR VOLUME 100 fL (82-100); MONOCYTES # (AUTO) 0.4 /CMM (0.1-1.30); MONOCYTES % (AUTO) 8.2 % (2.0-12.0); NEUTROPHILS # (AUTO) 2.9 /CMM (1.8-8.9); NEUTROPHILS % (AUTO) 63.4 % (43.0-81.0); PLATELET COUNT (AUTO) 223 /CMM (150-450); RED BLOOD CELL COUNT(AUTO) 4.18 MIL/uL (4.0-5.2); WHITE BLOOD COUNT (AUTO) 4.6 K/uL (4.3-11.0)
[2018-11-29 13:44] LABS: APPEARANCE,URINE Clear (CLEAR); BILIRUBIN,URINE SMALL (NEGATIVE); BLOOD, URINE Small Ery/uL (NEGATIVE); COLOR,URINE Yellow (YELLOW); KETONES,URINE Trace (NEGATIVE); LEUKOCYTE ESTERASE ,URINE Negative (NEGATIVE); NITRITE, URINE Negative (NEGATIVE); PROTEIN,URINE 30 mg/dl (NEGATIVE); UGLUCOSE Negative (NEGATIVE); UROBILINOGEN,URINE 0.2 EU/dL (0.2)
[2018-11-29 13:49] LABS: CALCIUM, SERUM 9.2 mg/dL (8.5-10.1); CREATININE 0.8 mg/dL (0.6-1.3); POTASSIUM 4.5 mmol/L (3.5-5.1)
[2018-11-29 13:56] LABS: BACTERIA,URINE Rare /HPF (None Seen); SQUAMOUS EPITHELIAL CELL,UR Few /HPF (None Seen); WBC,URINE NONE SEEN /HPF (0-3)
--- NOTE | 2018-11-29 14:32 | NUR ---
I/O cath done as requested 20cc urine obtained sent to lab. Cath retained for 10min NO further output -Bladder scanner done >27ml on lower quad. EDITA Martinez notified.
[2018-11-29] MEDS ORDERED: IV NS 0.9% 1,000 ML BAG IV ONE ×2 (15:00)
[2018-11-29 16:51] VITALS: BP 121/89
--- NOTE | 2018-11-29 16:52 | NUR ---
Able to urinate after interventions (po and IV fluid) For discharge ACI given verbalized understanding. Home ambulatory Stable
== END 2018-11-29 16:53 | disposition home or self-care (01) ==
LOC: ER 12:34
DX: R34 Anuria and oliguria (principal); K59.00 Constipation, unspecified; R93.41 Abnormal radiologic findings on diagnostic imaging of renal pelvis, ureter, or bladder; A69.20 Lyme disease, unspecified; F31.9 Bipolar disorder, unspecified; Z87.440 Personal history of urinary (tract) infections; Z98.890 Other specified postprocedural states
CPT/HCPCS: 36415; 76770-TC; 80048-TC; 81000-TC; 84703-TC; 85025-TC; 87086-TC

== ENCOUNTER 2019-07-20 14:17 | Emergency (ER) | payer MEDICAID ==
[~2019-07-20] VITALS: Ht 175.3 cm; Wt 59.0 kg
--- NOTE | 2019-07-20 14:45 | NUR ---
bibra60, from home, c/p gradual onset pressure like pain 7/10 ps ASA 324mg and nitro spray x 2, relieve. Patient a/ox4, breathing even and unlabored, no sob noted,needs attended, kept comfortable.
[2019-07-20] MEDS ORDERED: TAMSULOSIN 0.4 MG CAP.SR.24H ONE (15:40)
[2019-07-20] MEDS: TAMSULOSIN 0.4 MG CAP.SR.24H PO ONE (15:48)
--- NOTE | 2019-07-20 16:04 | NUR ---
s/p urine catheter received 40ml of urine only. sent to lab.
[2019-07-20 16:22] LABS: BASOPHILS % (AUTO) 0.3 % (0.0-2.0); EOSINOPHILS % (AUTO) 2.1 % (0.0-6.0); HEMATOCRIT 42 % (33-45); LYMPHOCYTES # (AUTO) 0.8 /CMM (0.8-4.8); LYMPHOCYTES % (AUTO) 19.6 % (20.0-44.0); MEAN CORPUSCULAR HGB CONC 34 g/dl (31.0-36.0); MEAN CORPUSCULAR VOLUME 100 fL (82-100); MONOCYTES # (AUTO) 0.3 /CMM (0.1-1.30); MONOCYTES % (AUTO) 6.4 % (2.0-12.0); NEUTROPHILS % (AUTO) 71.6 % (43.0-81.0); PLATELET COUNT (AUTO) 161 /CMM (150-450); RED BLOOD CELL COUNT(AUTO) 4.17 MIL/uL (4.0-5.2); WHITE BLOOD COUNT (AUTO) 4.2 K/uL (4.3-11.0)
[2019-07-20 16:29] LABS: APPEARANCE,URINE CLEAR (CLEAR); BILIRUBIN,URINE MODERATE (NEGATIVE); BLOOD, URINE NEGATIVE Ery/uL (NEGATIVE); COLOR,URINE YELLOW (YELLOW); KETONES,URINE >=80 (NEGATIVE); LEUKOCYTE ESTERASE ,URINE NEGATIVE (NEGATIVE); NITRITE, URINE NEGATIVE (NEGATIVE); PROTEIN,URINE TRACE mg/dl (NEGATIVE); UGLUCOSE NEGATIVE (NEGATIVE); UROBILINOGEN,URINE 0.2 EU/dL (0.2)
[2019-07-20 16:33] LABS: CALCIUM, SERUM 9.4 mg/dL (8.5-10.1); POTASSIUM 4.4 mmol/L (3.5-5.1)
[2019-07-20 16:35] LABS: RBC,URINE NONE SEEN /HPF (0-2); WBC,URINE NONE SEEN /HPF (0-3)
[2019-07-20 16:36] LABS: BACTERIA,URINE FEW /HPF (None Seen); MUCUS,URINE Many /LPF (None Seen); SQUAMOUS EPITHELIAL CELL,UR Many /HPF (None Seen)
[2019-07-20 17:50] VITALS: BP 112/78
== END 2019-07-20 17:51 | disposition home or self-care (01) ==
LOC: ER 14:19
DX: N39.9 Disorder of urinary system, unspecified (principal); F31.9 Bipolar disorder, unspecified; Z87.440 Personal history of urinary (tract) infections; Z98.890 Other specified postprocedural states; Z79.899 Other long term (current) drug therapy
CPT/HCPCS: 36415; 76770-TC; 80048-TC; 81000-TC; 84703-TC; 85025-TC

== ENCOUNTER 2019-10-25 14:10 | Emergency (ER) | payer MEDICAID ==
[~2019-10-25] VITALS: Ht 175.3 cm; Wt 59.0 kg
--- NOTE | 2019-10-25 14:30 | NUR ---
PT C/O DYSURIA & URINARY RETENTION. PT AAOX4, VSS, RR EVEN & UNLABORES. PT SEEN & EVAL'D BY DR. BONDS. WILL CONT TO MONITOR.
[2019-10-25 14:57] LABS: APPEARANCE,URINE Clear (CLEAR); BILIRUBIN,URINE Negative (NEGATIVE); BLOOD, URINE Negative Ery/uL (NEGATIVE); COLOR,URINE Yellow (YELLOW); KETONES,URINE Negative (NEGATIVE); LEUKOCYTE ESTERASE ,URINE Negative (NEGATIVE); NITRITE, URINE Negative (NEGATIVE); PH,URINE 8.5 (5.0-8.0); PROTEIN,URINE 30 mg/dl (NEGATIVE); UGLUCOSE Negative (NEGATIVE); UROBILINOGEN,URINE 0.2 EU/dL (0.2)
[2019-10-25 15:36] LABS: BASOPHILS % (AUTO) 0.4 % (0.0-2.0); EOSINOPHILS % (AUTO) 2.6 % (0.0-6.0); HEMATOCRIT 44 % (33-45); HEMOGLOBIN 14.7 g/dL (11.5-14.8); LYMPHOCYTES # (AUTO) 0.5 /CMM (0.8-4.8); LYMPHOCYTES % (AUTO) 10.4 % (20.0-44.0); MEAN CORPUSCULAR HGB CONC 34 g/dl (31.0-36.0); MEAN CORPUSCULAR VOLUME 101 fL (82-100); MONOCYTES # (AUTO) 0.2 /CMM (0.1-1.30); NEUTROPHILS # (AUTO) 4.1 /CMM (1.8-8.9); NEUTROPHILS % (AUTO) 82.6 % (43.0-81.0); PLATELET COUNT (AUTO) 186 /CMM (150-450); RED BLOOD CELL COUNT(AUTO) 4.33 MIL/uL (4.0-5.2)
[2019-10-25 15:42] LABS: CALCIUM, SERUM 9.3 mg/dL (8.5-10.1); CREATININE 0.9 mg/dL (0.6-1.3)
[2019-10-25 15:47] LABS: ALBUMIN 4.2 g/dL (3.4-5.0); BILIRUBIN,DIRECT 0.1 mg/dL (0.0-0.2); BILIRUBIN,TOTAL 0.4 mg/dL (0.2-1.0); TOTAL PROTEIN, SERUM 7.3 g/dL (6.4-8.2)
[2019-10-25 17:12] VITALS: BP 124/80
== END 2019-10-25 17:13 | disposition home or self-care (01) ==
LOC: ER 14:16
DX: K58.9 Irritable bowel syndrome, unspecified (principal); F31.9 Bipolar disorder, unspecified; Z98.890 Other specified postprocedural states; Z79.899 Other long term (current) drug therapy
CPT/HCPCS: 36415; 74021; 80048-TC; 80076-TC; 81000-TC; 84703-TC; 85025-TC; 87086-TC

== ENCOUNTER 2020-02-02 13:44 | Emergency (ER) | payer MEDICAID ==
[~2020-02-02] VITALS: Ht 170.2 cm; Wt 63.5 kg
--- NOTE | 2020-02-02 13:45 | NUR ---
PT BIB SELF C/O LOWER ABDOMINAL PAIN W/ N/V/D. PT IS AAOX4, NOT IN RESPIRATORY DISTRESS, V/S STABLE, KEPT RESTED AND COMFORTABLE, WILL CONTINUE TO MONITOR.
--- NOTE | 2020-02-02 14:10 | NUR ---
AT BEDSIDE FOR EVAL.
--- NOTE | 2020-02-02 14:20 | NUR ---
IV LINE ESTABLISHED BLOOD DRAWN AND SENT TO LAB.
[2020-02-02] MEDS ORDERED: ONDANSETRON HCL/PF 4 MG/2 ML VIAL ONE (14:26)
[2020-02-02] MEDS ORDERED: KETOROLAC TROMETHAMINE INJ 30 MG/ML VIAL ONE (14:26)
[2020-02-02 14:27] LABS: BASOPHILS % (AUTO) 0.5 % (0.0-2.0); EOSINOPHILS % (AUTO) 2.3 % (0.0-6.0); HEMATOCRIT 42 % (33-45); HEMOGLOBIN 14.2 g/dL (11.5-14.8); LYMPHOCYTES # (AUTO) 1.1 /CMM (0.8-4.8); LYMPHOCYTES % (AUTO) 40.2 % (20.0-44.0); MEAN CORPUSCULAR HGB CONC 34 g/dl (31.0-36.0); MEAN CORPUSCULAR VOLUME 103 fL (82-100); MONOCYTES # (AUTO) 0.3 /CMM (0.1-1.30); MONOCYTES % (AUTO) 10.4 % (2.0-12.0); NEUTROPHILS # (AUTO) 1.3 /CMM (1.8-8.9); NEUTROPHILS % (AUTO) 46.6 % (43.0-81.0); PLATELET COUNT (AUTO) 186 /CMM (150-450); WHITE BLOOD COUNT (AUTO) 2.8 K/uL (4.3-11.0)
[2020-02-02] MEDS ORDERED: IV NS 0.9% 1,000 ML BAG IV ONE (14:30)
[2020-02-02] MEDS ORDERED: ONDANSETRON HCL/PF 4 MG/2 ML VIAL IVP ONE (14:30)
[2020-02-02] MEDS ORDERED: KETOROLAC TROMETHAMINE INJ 30 MG/ML VIAL IV ONE (14:30)
--- NOTE | 2020-02-02 14:30 | NUR ---
URINAL GIVEN UNABLE TO PROVIDE URINE SPECIMEN THIS TIME.
[2020-02-02 14:41] LABS: CALCIUM, SERUM 9.1 mg/dL (8.5-10.1); CREATININE 0.9 mg/dL (0.6-1.3); POTASSIUM 4.6 mmol/L (3.5-5.1)
[2020-02-02 14:47] LABS: BILIRUBIN,DIRECT 0.1 mg/dL (0.0-0.2); BILIRUBIN,TOTAL 0.3 mg/dL (0.2-1.0); TOTAL PROTEIN, SERUM 7.2 g/dL (6.4-8.2)
--- NOTE | 2020-02-02 15:00 | NUR ---
PT SIGNED WAIVER STATING SHE IS NOT AND AGREED TO RECEIVED PAIN MEDICATION TORADOL 30MG IVP AND AWARE OF THE SIDE EFFECTS.
--- NOTE | 2020-02-02 15:29 | NUR ---
DILIP JIN AT BEDSIDE FOR AWAKE OVERNIGHT MONITOR FOR IN AND OUT URINARY CATHETERIZATION.
--- NOTE | 2020-02-02 15:30 | NUR ---
URINE SPECIMEN COLLECTED AND SENT TO LAB.
[2020-02-02 15:34] LABS: APPEARANCE,URINE Clear (CLEAR); BILIRUBIN,URINE Negative (NEGATIVE); BLOOD, URINE Negative Ery/uL (NEGATIVE); COLOR,URINE Yellow (YELLOW); KETONES,URINE Negative (NEGATIVE); LEUKOCYTE ESTERASE ,URINE Negative (NEGATIVE); NITRITE, URINE Negative (NEGATIVE); PROTEIN,URINE Negative (NEGATIVE); UGLUCOSE Negative (NEGATIVE); UROBILINOGEN,URINE 0.2 EU/dL (0.2)
[2020-02-02 16:11] LABS: LYMPHOCYTES % (MANUAL) 43 % (16-48); MONOCYTES % (MANUAL) 10 % (0-11.0); NEUTROPHILS % (MANUAL) 47 (42-76)
--- NOTE | 2020-02-02 16:12 | NUR ---
TECH AT BEDSIDE FOR US.
[2020-02-02 17:04] VITALS: BP 122/75
--- NOTE | 2020-02-02 17:04 | NUR ---
IV removed. Catheter intact and site benign. Pressure and 4x4 applied to site. No bleeding noted. Patient discharged to home in stable condition. Written and verbal after care instructions given. Patient verbalizes understanding of instruction.
== END 2020-02-02 17:04 | disposition home or self-care (01) ==
LOC: ER 13:47
DX: R10.2 Pelvic and perineal pain (principal); K59.00 Constipation, unspecified; R19.7 Diarrhea, unspecified; F31.9 Bipolar disorder, unspecified; Z98.890 Other specified postprocedural states; Z79.899 Other long term (current) drug therapy
CPT/HCPCS: 36415; 74176; 76856; 80048; 80076; 81001; 83690; 84703; 85025; 96361; 96374; 96375; 99285; J1885; J2405; J7030; 81000-TC

== ENCOUNTER 2020-02-13 15:37 | Inpatient (IN) | payer MEDICAID ==
[~2020-02-13] VITALS: Ht 170.2 cm; Wt 63.5 kg
--- NOTE | 2020-02-13 15:37 | NUR ---
PT BIBRA FROM HOME C/O DIZZINESS X 8HRS. PT IS AAOX4, NOT IN RESPIRATORY DISTRESS, HOOKED TO DIRECTOR OUTPATIENT SERVICES, KEPT RESTED AND COMFORTABLE. WILL CONTINUE TO MONITOR.
--- NOTE | 2020-02-13 15:58 | NUR ---
PT SEEN AND EXAMINED BY .
[2020-02-13] MEDS ORDERED: CEFTRIAXONE 1GM BAG (ER ONLY) 1 GM/50 ML PIGGYBACK IV ONE (16:00)
[2020-02-13] MEDS ORDERED: ONDANSETRON HCL/PF 4 MG/2 ML VIAL IVP ONE (16:00)
[2020-02-13] MEDS ORDERED: methylPREDNISolone SOD SUCC 125 MG/2ML VIAL IV ONE (16:00)
[2020-02-13] MEDS ORDERED: ONDANSETRON HCL/PF 4 MG/2 ML VIAL ONE (16:01)
[2020-02-13] MEDS ORDERED: methylPREDNISolone SOD SUCC 125 MG/2ML VIAL ONE (16:01)
[2020-02-13] MEDS ORDERED: CEFTRIAXONE 1GM BAG (ER ONLY) 50 ML IV ONE (16:01)
--- NOTE | 2020-02-13 16:03 | NUR ---
Patient refused MD sarah aware.
--- NOTE | 2020-02-13 16:10 | NUR ---
IV LINE ESTABLISHED BLOOD DRAWN AND SENT TO LAB.
--- NOTE | 2020-02-13 16:15 | NUR ---
PER GIVE ROCEPHIN AFTER CT SCAN.
[2020-02-13 16:26] LABS: BASOPHILS % (AUTO) 0.4 % (0.0-2.0); EOSINOPHILS % (AUTO) 1.6 % (0.0-6.0); HEMATOCRIT 40 % (33-45); HEMOGLOBIN 13.5 g/dL (11.5-14.8); LYMPHOCYTES # (AUTO) 0.7 /CMM (0.8-4.8); LYMPHOCYTES % (AUTO) 20.8 % (20.0-44.0); MEAN CORPUSCULAR HGB CONC 34 g/dl (31.0-36.0); MEAN CORPUSCULAR VOLUME 104 fL (82-100); MONOCYTES # (AUTO) 0.4 /CMM (0.1-1.30); MONOCYTES % (AUTO) 11.9 % (2.0-12.0); NEUTROPHILS # (AUTO) 2.3 /CMM (1.8-8.9); NEUTROPHILS % (AUTO) 65.3 % (43.0-81.0); PLATELET COUNT (AUTO) 157 /CMM (150-450); RED BLOOD CELL COUNT(AUTO) 3.88 MIL/uL (4.0-5.2); WHITE BLOOD COUNT (AUTO) 3.5 K/uL (4.3-11.0)
[2020-02-13] MEDS ORDERED: RISP0.2515 PO (16:28)
[2020-02-13] MEDS ORDERED: CLOB10TA3 PO (16:28)
[2020-02-13] MEDS ORDERED: TAMS-12 PO (16:28)
[2020-02-13] MEDS ORDERED: LEVO25TA9 PO (16:28)
[2020-02-13] MEDS ORDERED: ESCI10TA PO (16:28)
[2020-02-13 16:37] LABS: CALCIUM, SERUM 8.8 mg/dL (8.5-10.1); CREATININE 0.8 mg/dL (0.6-1.3); POTASSIUM 3.9 mmol/L (3.5-5.1)
[2020-02-13 16:49] LABS: THYROID STIMULATING HORMONE 1.965 uIU/mL (0.358-3.74)
--- NOTE | 2020-02-13 16:51 | NUR ---
URINE SAMPLE COLLECTED VIA STRAIGHT CATHETER, SAMPLE SENT TO LAB.
--- NOTE | 2020-02-13 16:51 | NUR ---
RAPID COVID SWAB DONE AND SENT TO LAB
[2020-02-13 16:53] LABS: ALBUMIN 3.4 g/dL (3.4-5.0); BILIRUBIN,DIRECT 0.2 mg/dL (0.0-0.2); BILIRUBIN,TOTAL 0.5 mg/dL (0.2-1.0); SALICYLATE 2.5 mg/dL (2.8-20.0); TOTAL PROTEIN, SERUM 6.6 g/dL (6.4-8.2)
[2020-02-13 17:18] LABS: APPEARANCE,URINE Clear (CLEAR); BILIRUBIN,URINE Negative (NEGATIVE); BLOOD, URINE Negative Ery/uL (NEGATIVE); COLOR,URINE Yellow (YELLOW); KETONES,URINE Negative (NEGATIVE); LEUKOCYTE ESTERASE ,URINE Negative (NEGATIVE); NITRITE, URINE Negative (NEGATIVE); PH,URINE 7.5 (5.0-8.0); PROTEIN,URINE Negative (NEGATIVE); UGLUCOSE Negative (NEGATIVE); UROBILINOGEN,URINE 0.2 EU/dL (0.2)
--- NOTE | 2020-02-13 18:22 | NUR ---
PT RESTING, EYES CLOSED BUT EASILY AWAKEN BY VERBAL STIMULI. RR EVEN & UNLABORED. DENIES CP, SOB, DIZZINESS, N/V AT THIS TIME. WILL CONT TO MONITOR.
--- NOTE | 2020-02-13 18:48 | NUR ---
NO AVAILABLE TELE BED OF THIS TIME PER NURSING [employer] ARCHITECT.
[2020-02-13] MEDS ORDERED: MAG HYDROX/AL HYDROX/SIMETH 30 ML UDC PO PRN (19:00)
[2020-02-13] MEDS ORDERED: MAGNESIUM HYDROXIDE 30 ML UDC PO PRN (19:00)
[2020-02-13] MEDS ORDERED: ZOLPIDEM TARTRATE 5 MG TABLET PO PRN (19:00)
[2020-02-13] MEDS ORDERED: HYDROMORPHONE 1 MG/1 ML DISP.SYRIN IV ONE (19:00)
[2020-02-13] MEDS ORDERED: ACETAMINOPHEN 325 MG TABLET PO PRN (19:00)
[2020-02-13] MEDS ORDERED: CEFTRIAXONE 1 G in IV D5W 50 ML IV SCH (20:00)
--- NOTE | 2020-02-13 20:37 | NUR ---
BED ASSIGNMENT 306-2
--- NOTE | 2020-02-13 20:45 | NUR ---
REPORT GIVEN TO STACY VELAZCO FOR LITO.
[2020-02-13 21:45] VITALS: BP 127/93
--- NOTE | 2020-02-13 21:45 | NUR ---
TELE/SUPERVISOR FIBER LOCKING NOTE Received patient at 2145. Patient is A/O x4. Face is symmetrical. Mucous membranes pink and moist. Tongue is midline. No tracheal deviation. No JVD. CRP <3 seconds. Breath sounds even, clear, unlabored, on room air. No signs of acute distress or SOB. Skin is warm, pink dry, appropriate for ethnicity. Dry scab noted on right foot. Redness noted on right knee. Photos taken and documented in chart. Bruises noted on abdomen, and all extremities. Patient states that she incurred these bruises from a fall. Bowel sounds normoactive in all quadrants. Abdomen soft, non tender, no distention. Pedal pulses 2+. Patient is ambulatory, voids via BRP. [place] Layer strength 4+. Bed in low position, wheels locked, side rails up x2m call light within reach. Addendum: 02/13/20 at 2337 by JUAN A TSANG RN Tele monitor: sinus rhythm, HR 80s
[2020-02-13] MEDS: HYDROCODONE/APAP 5/325MG TABLET PO PRN (23:38)
--- NOTE | 2020-02-13 23:44 | NUR ---
TELE/RN NOTE Patient c/o generalized pain from head to lower back, level 10. Aching and throbbing. Administered PRN norco as ordered. BP 116/77 P85 T99 R18 [id number]%. Will continue to monitor.
[2020-02-14] VITALS: BP 116/77
--- NOTE | 2020-02-14 03:00 | NUR ---
TELE/RN NOTE Patient c/o pain unrelieved by norco. Notified hospitalist. New med order of 1mg hydromorphone per MD. Will continue to monitor.
[2020-02-14] MEDS ORDERED: MORPHINE SULFATE INJ 2 MG/ML DISP.SYRIN IV PRN (03:30)
--- NOTE | 2020-02-14 03:46 | NUR ---
TELE/RN NOTE Patient c/o generalized pain from head to lower back, level 10. Aching and throbbing. Administered PRN hydromorphone as ordered. BP 121/74 P84 T98.6 R18 [id number]%. Will continue to monitor.
[2020-02-14 05:08] VITALS: BP 103/63
--- NOTE | 2020-02-14 05:53 | NUR ---
TELE/RN CLOSING NOTE Patient is A/O x4. Breath sounds even, clear, unlabored, on room air. Tele monitor NSR HR in 80s. No signs of acute distress or SOB. Skin is warm, pink dry, appropriate for ethnicity. Dry scab noted on right foot. Redness noted on right knee. Bruises noted on abdomen, and all extremities. IV site RAC 20g running NS @ 60 ml/hr, no signs of infiltration. Abdomen soft, non tender, no distention. Pedal pulses 2+. Patient is ambulatory with assist, voids via BRP. Bed in low position, wheels locked, side rails up x2m call light within reach.
[2020-02-14] MEDS: IV NS 0.9% 1,000 ML IV PRN ×2 (06:07→22:13)
--- NOTE | 2020-02-14 06:39 | NUR ---
TEXTED DR. ROMAN FOR MRI APPROVAL.
--- NOTE | 2020-02-14 07:00 | NUR ---
MS RN OPENING NOTE RECEIVED PT RESTING IN BED AT THIS TIME. A/O X 4, NO SOB NOTED, NO S/S OF ANY ACUTE DISTRESS NOTED. NO C/O PAIN AT THIS TIME. RESPIRATIONS ARE EVEN AND UNLABORED WITH EQUAL RISE AND FALL IN CHEST. PT ABLE TO MAKE NEEDS KNOWN. IV ACCESS NOTED IN RAC G# 20, PATENT, INTACT AND FLUSHING WELL. FALL AND SAFETY PRECAUTION IN PLACE AND MAINTAINED AT ALL TIMES. BED IN LOWEST LOCKED POSITION, HOB ELEVATED, RAILS UP X 2, CALL LIGHT WITHIN REACH. WILL CONTINUE TO MONITOR
[2020-02-14 08:00] VITALS: BP 108/70
[2020-02-14] MEDS: HYDROCODONE/APAP 5/325MG TABLET PO PRN (09:15)
[2020-02-14] MEDS: predniSONE 20 MG TABLET PO SCH (09:15)
--- NOTE | 2020-02-14 09:15 | NUR ---
PT C/O OF GENERALIZED ACHING, GUARDING, THROBBING PAIN OF 7/10. VS WNL. NORCO 5-325MG PO Q4HRS PRN ADMINISTERED AT THIS TIME. WILL CONTINUE TO MONITOR
--- NOTE | 2020-02-14 10:00 | NUR ---
CONSENT FOR MRI OF BRAIN W/WO CONTRAST SIGNED BY PT AND FILED IN CHART. MRI CHECK LIST DONE. WILL CONTINUE WITH PLAN OF CARE
[2020-02-14] MEDS: MORPHINE SULFATE INJ 2 MG/ML DISP.SYRIN IV PRN ×2 (11:17→18:07)
--- NOTE | 2020-02-14 11:17 | NUR ---
PT C/O OF GENERALIZED ACHING, GUARDING, THROBBING PAIN OF 10/10. VS WNL. MORPHINE SULFATE 2MG IV Q6HRS PRN ADMINISTERED AT THIS TIME. WILL CONTINUE TO MONITOR
--- NOTE | 2020-02-14 11:31 | NUR ---
PT TRANSPORTED BY WHEEL CHAIR FOR MRI OF BRAIN W/WO CONTRAST AT THIS TIME. WILL CONTINUE TO MONITOR
--- NOTE | 2020-02-14 12:30 | NUR ---
PT TRANSPORTED BY WHEEL CHAIR TO UNIT AT THIS TIME FROM MRI OF BRAIN W/WO CONTRAST. WILL CONTINUE TO MONITOR
[2020-02-14] MEDS ORDERED: GADOTERATE MEGLUMINE 10 MMOL/20 ML VIAL IV ONE (12:43)
[2020-02-14 16:00] VITALS: BP 107/69
[2020-02-14] MEDS ORDERED: CEFTRIAXONE 1 G in IV D5W 50 ML IV SCH (16:00)
--- NOTE | 2020-02-14 16:27 | NUR ---
PT REQUESTED NOT TO BE ON ROCEPHIN 1G IN IV D5W(IV D5W 50ML) 50ML IV Q24H. DOCTOR MORRIS MADE AWARE. RECEIVED ORDERS FROM DOCTOR MORRIS TO DC ROCEPHIN. ORDERS CARRIED OUT. WILL CONTINUE TO MONITOR
[2020-02-14] MEDS: ONDANSETRON HCL/PF 4 MG/2 ML VIAL IVP PRN (18:07)
--- NOTE | 2020-02-14 18:13 | NUR ---
PT C/O OF GENERALIZED ACHING, GUARDING, THROBBING PAIN OF 10/10. VS WNL. MORPHINE SULFATE 2MG IV Q6HRS PRN ADMINISTERED AT THIS TIME. WILL CONTINUE TO MONITOR
--- NOTE | 2020-02-14 18:13 | NUR ---
PT C/O OF NAUSEA. VS WNL. ZOFRAN 4GM IVP Q6HRS PRN ADMINISTERED AT THIS TIME. WILL CONTINUE TO MONITOR
--- NOTE | 2020-02-14 18:47 | NUR ---
DOCTOR ARTURO MADE AWARE TO RECONCILE PT'S MEDICATIONS. WILL CONTINUE TO MONITOR
--- NOTE | 2020-02-14 19:03 | NUR ---
MS RN CLOSING NOTES PT AWAKE IN BED AT THIS TIME. PT REMAINED STABLE THROUGHOUT SHIFT. PT KEPT CLEAN AND DRY. ALL CARE, NEEDS, MEDICATION AND TREATMENT ADMINISTERED ANTICIPATED PER ORDER. ASPIRATION AND SAFETY PRECAUTION IN PLACE. BED IN LOWEST LOCKED POSITION, HOB ELEVATED, RAILS UP X 2, CALL LIGHT WITHIN REACH. WILL ENDORSE TO RESTAURANT OPERATIONS MANAGER NURSE FOR LITO
--- NOTE | 2020-02-14 19:24 | NUR ---
TELE/RN OPENING NOTE Patient awake in bed. A/O x4, pleasant. Speech is clear. Face is symmetrical. Mucous membranes pink and moist. Breathing even, clear, unlabored, on room air. Tele monitor NSR HR 70s. No signs of acute distress or SOB. Pedal pulses 2+. Patient denies pain, nausea, vomiting. Patient void via BSC with assist. Bowel sounds normoactive in all quadrants. Abdomen round soft, non-distended. Skin warm, pink, dry, appropriate for ethnicity. Scab noted on right foot. Redness noted on right knee. Multiple bruises noted on abdomen and all extremities. IV site RAC 20g running NS @ 60 ml/hr, no signs of infiltration. Bed in low position, wheels locked side rails up x2, call light within reach.
[2020-02-14 20:00] VITALS: BP 115/78
[2020-02-14] MEDS: LamoTRIgine 100 MG TABLET PO SCH (20:07)
[2020-02-14 20:30] VITALS: BP 115/78
[2020-02-14] MEDS ORDERED: TAMSULOSIN 0.4 MG CAP.SR.24H PO SCH (22:00)
[2020-02-14] MEDS: risperiDONE 0.25 MG TABLET PO SCH (22:08)
[2020-02-15] VITALS (7 sets, daily range): BP systolic 109–127; BP diastolic 69–89
[2020-02-15] MEDS: MORPHINE SULFATE INJ 2 MG/ML DISP.SYRIN IV PRN ×4 (01:09→21:17)
--- NOTE | 2020-02-15 01:15 | NUR ---
TELE/RN NOTE Patient c/o pain level 9 throughout body, aching and throbbing. Administered PRN morphine as ordered. VSS. Will continue to monitor.
--- NOTE | 2020-02-15 06:14 | NUR ---
TELE/RN CLOSING NOTE Patient asleep in bed. A/O x4. Breathing even, clear, unlabored, on room air. Tele monitor NSR HR 70s. No signs of acute distress or SOB. Pedal pulses 2+. Patient denies pain, nausea, vomiting. Patient void via BSC with assist. Urinary output 500 ml, clear yellow urine. Abdomen round soft, non-distended. No bowel movement. Skin warm, pink, dry, appropriate for ethnicity. Scab noted on right foot. Redness noted on right knee. Multiple bruises noted on abdomen and all extremities. IV site RAC 20g running NS @ 60 ml/hr, no signs of infiltration. Bed in low position, wheels locked side rails up x2, call light within reach.
[2020-02-15 06:23] LABS: BASOPHILS % (AUTO) 0.2 % (0.0-2.0); EOSINOPHILS % (AUTO) 0.7 % (0.0-6.0); HEMATOCRIT 37 % (33-45); HEMOGLOBIN 12.3 g/dL (11.5-14.8); LYMPHOCYTES # (AUTO) 0.9 /CMM (0.8-4.8); LYMPHOCYTES % (AUTO) 27.2 % (20.0-44.0); MEAN CORPUSCULAR HGB CONC 33 g/dl (31.0-36.0); MEAN CORPUSCULAR VOLUME 105 fL (82-100); MONOCYTES # (AUTO) 0.3 /CMM (0.1-1.30); MONOCYTES % (AUTO) 10.5 % (2.0-12.0); NEUTROPHILS # (AUTO) 1.9 /CMM (1.8-8.9); NEUTROPHILS % (AUTO) 61.4 % (43.0-81.0); PLATELET COUNT (AUTO) 142 /CMM (150-450); RED BLOOD CELL COUNT(AUTO) 3.54 MIL/uL (4.0-5.2); WHITE BLOOD COUNT (AUTO) 3.2 K/uL (4.3-11.0)
[2020-02-15] MEDS: LEVOTHYROXINE SODIUM 25 MCG TABLET PO SCH (06:32)
[2020-02-15 06:48] LABS: CALCIUM, SERUM 8.5 mg/dL (8.5-10.1); CREATININE 0.7 mg/dL (0.6-1.3); POTASSIUM 3.8 mmol/L (3.5-5.1)
--- NOTE | 2020-02-15 07:24 | NUR ---
TELE/RN OPENING NOTE Received patient resting in bed, A&O x 4. Breathing even and non-labored on RA, no SOB noted. No respiratory or cardiac distress noted. No pain and discomfort noted at this time. On tele monitor, reading SR 70. IV access noted on RAC #20 gauge, patent and intact, running NS 60 ml/hr. No infection, infiltration, or bleeding noted on site. Sensation from all peripheral extremities intact. Bed locked to its lowest position, side rails x2 up, call light within reach. Instructed patient to use call light when in need of assistance. Will continue with current medical management.
[2020-02-15] MEDS: ESCITALOPRAM OXALATE (10 MG) 10 MG TABLET PO SCH (08:07)
[2020-02-15] MEDS: LamoTRIgine 100 MG TABLET PO SCH ×2 (08:08→20:34)
[2020-02-15] MEDS: predniSONE 20 MG TABLET PO SCH (08:08)
[2020-02-15] MEDS: ONDANSETRON HCL/PF 4 MG/2 ML VIAL IVP PRN ×3 (08:31→21:16)
[2020-02-15] MEDS: IV NS 0.9% 1,000 ML IV PRN (19:14)
--- NOTE | 2020-02-15 19:23 | NUR ---
MS/RN CLOSING NOTE Patient resting in bed, A&O x 4. Denies any pain and discomfort at this time, last morphine 2 mg given at 1442. No nausea/vomiting noted at this time, last zofran 4 mg given at 1443. Breathing even and non-labored on RA. No respiratory or cardiac distress noted. IV access on RAC #20 gauge remained patent and intact, running NS 60 ml/hr. Sensation from all peripheral extremities intact. Instructed patient to use call light when in need of assistance. Fall precautions maintained. Will endorse to mini shifter nurse.
--- NOTE | 2020-02-15 19:51 | NUR ---
MS/RN OPENING NOTES RECEIVED PATIENT IN BED, AWAKEN FROM SLEEP AND REPORTED TO HAVE PAIN OF 7/10, PAIN MEDICATION WAS EFFECTIVE OF MORPHINE 2 MG IV AND ZOFRAN, ABLE TO EAT DINNER 60%, ALERT, ORIENTED X3, ABLE TO VERBALIZE NEEDS, AND CALL LIGHTS WITHIN REACH, PROVIDED FLUIDS AND SOME JUICE, ON IV FLUIDS AT 60 ML/HR. IV SITE IN RIGHT AC GAUGE 20. PATIENT REPORTED THAT SHE HAD NO BM FOR THE PAST 2 DAYS AND WAS OFFERED FOR SOME MEDICATION TO RELIEVE CONSTIPATION, PATIENT REFUSE AT THIS TIME. WILL MONITOR.
--- NOTE | 2020-02-15 20:20 | NUR ---
MS/RN NOTES PATIENT SAFETY MEASURES PROVIDED, BED ALARM, CALL LIGHTS WITHIN REACH, FLUIDS WITHIN REACH, ,
[2020-02-15] MEDS: risperiDONE 0.25 MG TABLET PO SCH (21:13)
[2020-02-15] MEDS: TAMSULOSIN 0.4 MG CAP.SR.24H PO SCH (21:13)
--- NOTE | 2020-02-15 21:17 | NUR ---
MS/RN NOTES PATIENT REPORTED BACK PAIN ALSO IN HEAD, NEEDED MORPHINE 2 MG IVP AND ZOFRAN TO RELIEVE NAUSEA, TO MONITOR.
--- NOTE | 2020-02-16 07:12 | NUR ---
306-1MS/RN NOTES PATIENT ABLE TO VERBALIZE NEEDS, ALERT, ORENTED X3, ASSISTED TO THE BATROOM , ON ROOM AIR, ATTENDED ALL NEEDS, ABLE TO AMBULATE WITH ASSIST, MANAGED PAIN AND RELIEVE WITH NEEDED MEDICATION, BED LOCKED, CALL LIGHTS WITHIN REACH.
[2020-02-16 08:00] VITALS: BP 126/84
[2020-02-16] MEDS: LEVOTHYROXINE SODIUM 25 MCG TABLET PO SCH (08:41)
[2020-02-16] MEDS: LamoTRIgine 100 MG TABLET PO SCH ×2 (08:41→20:31)
[2020-02-16] MEDS: ESCITALOPRAM OXALATE (10 MG) 10 MG TABLET PO SCH (08:41)
[2020-02-16] MEDS: predniSONE 20 MG TABLET PO SCH ×2 (08:42→09:00)
--- NOTE | 2020-02-16 08:57 | NUR ---
WOUND CARE CONSULT: PT PRESENTS WITH RT KNEE DRY ABRASION AND RT FOOT DRY SCRATCH, PRESENT ON ADMISSION. RECOMMENDATIONS MADE FOR SKIN PROTECTION. DISCUSSED WITH NURSING STAFF. WILL SEE PRN.
[2020-02-16] MEDS: MORPHINE SULFATE INJ 2 MG/ML DISP.SYRIN IV PRN ×2 (09:33→18:15)
--- NOTE | 2020-02-16 13:10 | NUR ---
Patient cleared for d/c to home by d/c paperwork ready. Patient refusing to be d/c , dr Squires informed and case management informed. Patient requesting transfer to [facility] .
[2020-02-16] MEDS ORDERED: PRED20TA PO (13:51)
--- NOTE | 2020-02-16 15:49 | NUR ---
9:45am This SW met with the patient at bedside to conduct a social service consult per the request of Delmy Georges DNP. Patient is a 29-year-old female who presented to [facility] with complaints of dizziness. Patient is alert and oriented x4. Patient was receptive to meeting with this SW. Patient confirmed demographics on the face sheet including date of , social security number, and current address. Patient is currently living alone due to COVID-19 as patients roommates returned home for the time being. Patient is currently not working due to her medical condition. Patient currently receives $160 in food stamps. Patient reports that she is currently in the process of applying for SSD. Patient does not report alcohol, drug or cigarette use. Patient reports that she has self-harmed in the past. Patient reported that her last attempt was over a year ago. Patient reports that she does have a primary psychiatrist and therapist that she sees on a regular basis. Patient denies any homicidal ideations. Patient denies auditory and visual hallucinations. Patient reports that due to her Lyme disease, patient is forgetful and on occasion forgets to eat, bathe, cook, and clean. Patient can independently conduct her IADLs and ADLs. Patient stated, on occasion I forget to do things, but I can do these things on my own. Patient would like information of in-home support services to help provide some of these services on occasion. Patient will make her own transportation arrangements either via Uber or a friend pending discharge. This SW to provide SS information to the patient. This SW remains available for all needs of the patient.
--- NOTE | 2020-02-16 15:50 | NUR ---
10:00am This SW provided this patient with In-home support services information. This SW provided a direct print out of the information on cdss.[place].gov/fq-kdao-yjbffoqjwx-services including the eligibility requirements and the application. Patient to follow-up post-discharge. In-Home Supportive Services (IHSS) Program The IHSS Program will help pay for services provided to you so that you can remain safely in your own home. To be eligible, you must be over 65 years of age, or disabled, or blind. Disabled children are also potentially eligible for IHSS. IHSS is considered an alternative to out-of-home care, such as nursing homes or board and care facilities. The types of services which can be authorized through IHSS are housecleaning, meal preparation, laundry, grocery shopping, personal care services (such as bowel and bladder care, bathing, grooming and paramedical services), accompaniment to medical appointments, and protective supervision for the mentally impaired. Who is it For: Eligibility criteria for all IHSS applicants and recipients: You must physically reside in the [facility]. You must also be a [place] resident. You must have a [facility] eligibility determination. You must live at home or an abode of your own choosing (acute care hospital, long-term care facilities, and licensed community care facilities are not considered "own home"). You must submit a completed Health Care Certification form. How the program works: A [facility] ger[facility] social worker will interview you at your home to determine your eligibility and need for IHSS. Based on your ability to safely perform certain tasks for yourself, the geriatric social worker will assess the types of services you need and the number of hours the [facility] will authorize for each of these services. This assessment will include information given by you and, if appropriate, by your family, friends, physician or other licensed health patient care. A completed Health Care Certification (SOC 873) must be received by the county prior to authorization of services. You will be notified if IHSS has been approved or denied. If denied, you will be notified of the reason for the denial. If approved, you will be notified of the services and the number of hours per month which have been authorized for you. If you are approved for IHSS, you must hire someone (your individual provider) to perform the authorized services. You are considered your provider's employer and, therefore, it is your responsibility to hire, train, supervise, and fire this individual. If your county has contracted IHSS providers, you may choose to have services provided by the contractor. If your county has homemaker employees, you may receive services from a county homemaker. How are IHSS payments made? You may contact the geriatric social worker assigned to your case to determine the IHSS hourly rate in your county. Because unions negotiate with the employer of record in each county, the wage rates may vary from county to county. The State issues all checks for individual provider payments. If the provider qualifies, the State withholds the applicable amounts for disability insurance and Social Security taxes.
--- NOTE | 2020-02-16 15:51 | NUR ---
11:30am This SW informed Shop Lead STACY Meier of this patient who will follow-up with In-Home Support Services post-discharge.
[2020-02-16 16:00] VITALS: BP 98/67
--- NOTE | 2020-02-16 18:10 | NUR ---
Received call from Xi watch caser from [facility]. She informed me that patients transfer to [facility] was declined by administration. Patient can f/u with [facility] doctors outpatient. Contact number is [phone] . Patient informed and continue to refused to be d/c.
--- NOTE | 2020-02-16 19:10 | NUR ---
Patient resting in room with no distress noted. Breathing unlabored and even on room air; VS are stable. IV line flushing well , no s/s infiltration. All needs attended. Will endorse to next shift for LITO
--- NOTE | 2020-02-16 19:44 | NUR ---
MS/RN OPENING NOTES RECEIVED PATIENT IN BED, AWAKE, ALERT X4, ABLE TO VERBALIZE NEEDS, REPORTED THAT PATIENT HAVING ANXIETY ATTACK AND DISCUSSED PLAN OF CARE, WAS AWARE PATIENT WILL BE DC TO HOME WITH HOME HEALTH AND THAT SHE WILL RECEIVED OUTPATIENT CARE WITH HER [facility] MD, TO HAVE ATIVAN FOR TONIGHT AND THAT SHE WANTS TO CONTINUE WITH HER OTHER MEDICATION THAT WAS PRESCRIBED TO HER BY HER MD UPON DC , STILL ON PAIN ON ROOM AIR, BELONGINGS WITHIN REACH, MEDICATION TO RELIEVE HER BACK PAIN AND HEADACHE, TO FOLLOW UP DC MEDS BY MD. BED LOCKED, CALL LIGHTS WITHIN REACH. IV SITE ON LEFT HAND PATENT, WILL MONITOR.
[2020-02-16] MEDS: HYDROCODONE/APAP 5/325MG TABLET PO PRN (19:56)
[2020-02-16 19:58] VITALS: BP 115/75
[2020-02-16 20:00] VITALS: BP 115/75
[2020-02-16] MEDS: IV NS 0.9% 1,000 ML IV PRN (20:31)
[2020-02-16] MEDS: risperiDONE 0.25 MG TABLET PO SCH (21:26)
[2020-02-16] MEDS: TAMSULOSIN 0.4 MG CAP.SR.24H PO SCH (21:27)
--- NOTE | 2020-02-16 22:00 | NUR ---
MS/RN NOTES SPOKE WITH RADIOLOGIST REGARDING MRA PROCEDURE TO BE DONE FOR PATIENT PRIOR TO DISCHARGE PER MD ACOSTA, AND CHECK LIST PREPARED FOR PATIENT.
--- NOTE | 2020-02-16 23:18 | NUR ---
CHECK LIST FOR MRA MRI DONE AND PATIENT HAS SIGNED THE CHECK LIST.
--- NOTE | 2020-02-17 00:15 | NUR ---
MS/RN NOTES PATIENT REPORTED SEVERE PAIN IN HEAD AND BACK, NEEDED MEDICATION TO BE GIVEN MORPHINE 2 MG IVP AND PATIENT HAS NAUSEA, NEEDED ZOFRAN TO BE GIVEN, BP TAKEN AT 140/100
[2020-02-17] MEDS: ONDANSETRON HCL/PF 4 MG/2 ML VIAL IVP PRN (00:22)
[2020-02-17] MEDS: MORPHINE SULFATE INJ 2 MG/ML DISP.SYRIN IV PRN ×2 (00:23→08:15)
--- NOTE | 2020-02-17 06:40 | NUR ---
REPORT GIVEN TO MARTHA RN FOR LITO.
--- NOTE | 2020-02-17 07:30 | NUR ---
MS/RN OPENING NOTE Patient resting in bed, A&O x 4. Denies any pain and discomfort at this time. Breathing even and non-labored on RA, no SOB noted. No respiratory or cardiac distress noted. IV access noted on RAC #20 gauge, patent and intact, running NS 60 ml/hr. No infection, infiltration, or bleeding noted on site. Sensation from all peripheral extremities intact. Fall precautions maintained. Instructed patient to use call light when in need of assistance. Will continue with current plan of care.
[2020-02-17 08:00] VITALS: BP 107/74
[2020-02-17] MEDS: predniSONE 20 MG TABLET PO SCH ×2 (08:10→08:14)
[2020-02-17] MEDS: LEVOTHYROXINE SODIUM 25 MCG TABLET PO SCH (08:14)
[2020-02-17] MEDS: ESCITALOPRAM OXALATE (10 MG) 10 MG TABLET PO SCH (08:14)
[2020-02-17] MEDS: LamoTRIgine 100 MG TABLET PO SCH (08:14)
--- NOTE | 2020-02-17 14:25 | NUR ---
MS/STAGE BUILDER NOTES Patient picked up by Jas by [id number]. Patient remained stable, VSS, afebrile, no SOB noted. Denies any pain, discomfort, double vision, nausea, or vomiting upon discharge. Breathing even and non-labored on RA. No cardiac distress noted. IV access on L hand #20 gauge removed with catheter intact. No s/s of infiltration, bleeding, or infection noted on site. Sensation from all peripheral extremities intact. Photos of skin impairments taken and placed on chart. Patient was able to ambulate with assist. Educated patient and mother on discharge instructions, answered all their questions to their satisfaction. Patient left facility with all belongings and hospitalization documents in hand. Patient states appreciation towards staff and care that was provided.
== END 2020-02-17 14:30 | disposition home or self-care (01) | DRG 724 ==
LOC: ER 15:39 → MED 21:28 → TELE 22:05 → MED 02-15 08:42
PROVIDERS: ADMIT Nurse Practitioner Acute Care
DX: A69.20 Lyme disease, unspecified (principal); E03.9 Hypothyroidism, unspecified; K58.9 Irritable bowel syndrome, unspecified; Z87.440 Personal history of urinary (tract) infections; Z90.49 Acquired absence of other specified parts of digestive tract; F31.9 Bipolar disorder, unspecified; Z98.890 Other specified postprocedural states; Z79.899 Other long term (current) drug therapy
CPT/HCPCS: 36415; 70450-TC; 70544-TC; 70553-TC; 71045-TC; 80048-TC; 80076-TC; 80305; 81000-TC; 82140-TC; 83605-TC; 83735-TC; 84100-TC; 84443-TC; 84702-TC; 85025-TC; 85730-TC; 87040-TC; 87081-TC; 97116-TC; 97530-TC; A9575; C9803-CS; G0378; G0480; J0696; J2270; J2405; J2930; J7030; J7060